=== PATIENT | male | born 1955 | race Caucasian/White ===

== ENCOUNTER 2024-03-07 20:33 | Emergency (ER) | payer OTHER, SELFPAY ==
[2024-03-07 20:36] VITALS: BP 150/87; PULSE 70; RESP 17; TEMP 36.4; O2SAT 100
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
[2024-03-07 22:47] VITALS: BP 125/74; PULSE 66; RESP 18; O2SAT 96
== END 2024-03-07 23:02 | disposition home or self-care (01) ==
PROVIDERS: Emergency Provider Physician Assistant; PCP Family Medicine
DX: S05.02XA Injury of conjunctiva and corneal abrasion without foreign body, left eye, initial encounter (principal); W21.89XA Striking against or struck by other sports equipment, initial encounter
CPT/HCPCS: 99283